=== PATIENT | male | born 1970 | race Caucasian/White ===

== ENCOUNTER 2021-02-21 09:52 | Inpatient (IN) | payer SELFPAY ==
[2021-02-21] MEDS ORDERED: Cefepime 2 GM VIAL ONE (10:55)
[2021-02-21 11:15] LABS: #Monocytes 0.7 10x3/uL (0.0-1.1); %Basophils 0.3 % (0.0-2.0); %Eosinophils 0.2 % (0.0-6.0); %Lymphocytes 7.5 % (18.0-47.0); %Monocytes 6.4 % (0.0-10.0); %Neutrophils 84.9 % (40.0-75.0); Hemoglobin 13.5 g/dL (13.5-17.5); Mean Corpuscular HGB CONC 33.5 g/dL (32.0-36.0); Mean Corpuscular Hemoglobin 29.3 pg (27.0-33.0); Mean Corpuscular Volume 87.6 fl (81.2-95.1); Mean Platelet Volume 9.4 fl (7.4-10.4); Platelet Count 202 10x3/uL (150-450); RBC Distribution Width 13.3 % (11.5-14.5); White Blood Cell (WBC) Count 10.6 10x3/uL (3.5-10.5)
[2021-02-21] MEDS ORDERED: Morphine 4 MG/ML VIAL ONE (11:17)
[2021-02-21 11:37] LABS: ALT (SGPT) 12 U/L (8-55); AST (SGOT) 12 U/L (5-34); Albumin 3.1 g/dL (3.5-5.0); Alkaline Phosphatase 94 U/L (40-110); Anion Gap 20 mmol/L (10-20); BUN (Urea Nitrogen) 22 mg/dL (8.9-20.6); Bilirubin, Total 0.7 mg/dL (0.2-1.2); Calc. Creatinine Clearance 0 mL/min (70-130); Calcium 8.1 mg/dL (7.8-10.44); Carbon Dioxide 21 mmol/L (22-29); Chloride 95 mmol/L (98-107); Glucose 432 mg/dL (70-105); Potassium 4.1 mmol/L (3.5-5.1); Protein, Total 6.1 g/dL (6.0-8.3); Sodium 132 mmol/L (136-145)
[2021-02-21] MEDS ORDERED: Lidocaine 1% w/Epinephrine 1:100K 20 ML VIAL ONE (12:42)
[2021-02-21] MEDS ORDERED: Boostrix 0.5 ML (Tdap) VIAL ONE (13:21)
[2021-02-21] MEDS ORDERED: HYDROcodone/Acetaminophen 5/325 mg Tablet PO PRN (13:48)
[2021-02-21] MEDS ORDERED: Ondansetron ODT 4 MG TAB PO PRN (13:48)
[2021-02-21] MEDS ORDERED: Acetaminophen 325 MG TAB PO PRN (13:48)
[2021-02-21] MEDS ORDERED: Acetaminophen 650 MG Suppository PR PRN (13:48)
[2021-02-21] MEDS ORDERED: Senokot S 8.6-50 MG TAB PO PRN (13:48)
[2021-02-21] MEDS ORDERED: Ondansetron PF 4 MG/2 ML Vial IVP PRN (13:48)
[2021-02-21] MEDS ORDERED: Dextrose 5% in Water 1,000 ML IV PRN (13:51)
[2021-02-21] MEDS ORDERED: Dextrose 50% Abboject 50 ML SYRINGE SLOW IVP PRN (13:51)
[2021-02-21] MEDS ORDERED: Insulin Regular 300 UNITS/3 ML VIAL SC PRN (13:51)
[2021-02-21 14:01] LABS: Lactic Acid 1.5 mmol/L (0.5-2.2)
[2021-02-21] MEDS ORDERED: Piperacillin/Tazobactam 3.375 GM in Sodium Chloride 0.9% 100 ML IVPB SCH ×2 (15:00→16:00)
[2021-02-21 15:21] VITALS: BMI 38.9
[2021-02-21] MEDS: Sodium Chloride 0.9% 1,000 ML IV SCH (15:58)
[2021-02-21] MEDS: Insulin Regular 300 UNITS/3 ML VIAL SC PRN ×2 (16:12→22:06)
[2021-02-21] MEDS: Piperacillin/Tazobactam 3.375 GM in Sodium Chloride 0.9% 100 ML IVPB SCH (20:28)
[2021-02-21] MEDS: VANCOMYCIN 1.75 GM/350 ML BAG 1.75 GM in Premix Bag 1 BAG IVPB SCH (22:12)
[2021-02-22 01:46] LABS: SARS-CoV-2 PCR by NAA Not Detected (NotDetected)
[2021-02-22] MEDS: HYDROcodone/Acetaminophen 5/325 mg Tablet PO PRN ×2 (03:50→11:26)
[2021-02-22] MEDS: Sodium Chloride 0.9% 1,000 ML IV SCH ×2 (03:51→19:37)
[2021-02-22] MEDS: Piperacillin/Tazobactam 3.375 GM in Sodium Chloride 0.9% 100 ML IVPB SCH ×2 (03:51→13:42)
[2021-02-22 04:53] LABS: #Eosinphils 0.1 10x3/uL (0.0-0.5); #Monocytes 0.6 10x3/uL (0.0-1.1); #Neutrophils 7.1 10x3/uL (1.5-8.4); %Basophils 0.4 % (0.0-2.0); %Eosinophils 0.9 % (0.0-6.0); %Lymphocytes 13.7 % (18.0-47.0); %Monocytes 6.9 % (0.0-10.0); %Neutrophils 77.6 % (40.0-75.0); Hemoglobin 12.2 g/dL (13.5-17.5); Mean Corpuscular HGB CONC 33.2 g/dL (32.0-36.0); Mean Corpuscular Hemoglobin 29.2 pg (27.0-33.0); Mean Platelet Volume 9.8 fl (7.4-10.4); Platelet Count 181 10x3/uL (150-450); RBC Distribution Width 13.5 % (11.5-14.5); Red Blood Cell (RBC) Count 4.18 10x6/uL (4.32-5.72); White Blood Cell (WBC) Count 9.2 10x3/uL (3.5-10.5)
[2021-02-22 05:07] LABS: Anion Gap 14 mmol/L (10-20); BUN (Urea Nitrogen) 25 mg/dL (8.9-20.6); Calc. Creatinine Clearance 143 mL/min (70-130); Calcium 7.6 mg/dL (7.8-10.44); Carbon Dioxide 21 mmol/L (22-29); Chloride 100 mmol/L (98-107); Glucose 372 mg/dL (70-105); Potassium 3.4 mmol/L (3.5-5.1); Sodium 132 mmol/L (136-145)
[2021-02-22] MEDS: Insulin Regular 300 UNITS/3 ML VIAL SC PRN (06:00)
[2021-02-22] MEDS ORDERED: Potassium Chloride 20 MEQ TAB PO SCH (10:00)
[2021-02-22] MEDS: VANCOMYCIN 1.75 GM/350 ML BAG 1.75 GM in Premix Bag 1 BAG IVPB SCH (11:47)
[2021-02-22] MEDS ORDERED: NPH, Human Insulin Isophane 300 UNIT/3 ML VIAL SC SCH (18:15)
[2021-02-22 18:24] VITALS: BP 139/94; TEMP 98.6
[2021-02-23] MEDS ORDERED: NPH, Human Insulin Isophane 300 UNIT/3 ML VIAL SC SCH (07:30)
== END 2021-02-22 19:40 | disposition home or self-care (01) | DRG 854 ==
LOC: CSHERS 09:52 → CSHTELE 14:28
PROVIDERS: ADMIT Hospitalist; ATTEND Internal Medicine
PROC: 0D9Q0ZZ Drainage of Anus, Open Approach (ICD-10-PCS; principal; 2021-02-21)
DX: A41.9 Sepsis, unspecified organism (principal); K61.0 Anal abscess; I10 Essential (primary) hypertension; E78.5 Hyperlipidemia, unspecified; I25.10 Atherosclerotic heart disease of native coronary artery without angina pectoris; Z20.822 Contact with and (suspected) exposure to COVID-19; Z95.5 Presence of coronary angioplasty implant and graft; F17.210 Nicotine dependence, cigarettes, uncomplicated; Z82.49 Family history of ischemic heart disease and other diseases of the circulatory system; I11.0 Hypertensive heart disease with heart failure; I50.9 Heart failure, unspecified; E11.65 Type 2 diabetes mellitus with hyperglycemia; Z79.84 Long term (current) use of oral hypoglycemic drugs; Z79.899 Other long term (current) drug therapy
CPT/HCPCS: 36415; 36416; 46050; 74177; 80048; 80053; 83605; 85025; 87040; 87070; 87205; 90471; 90715; 93005; 93010; 96365; 96366; 96367; 96375; J0692; J1815; J2270; J2543; J3370; J3475; J3490; J7050; U0003; U0005

== ENCOUNTER 2021-03-16 21:05 | Inpatient (IN) | payer OTHER, SELFPAY ==
[2021-03-16] MEDS ORDERED: Furosemide 40 MG/4 ML VIAL ONE (22:12)
[2021-03-16 22:21] LABS: ALT (SGPT) 27 U/L (8-55); AST (SGOT) 20 U/L (5-34); Albumin 2.9 g/dL (3.5-5.0); Alkaline Phosphatase 169 U/L (40-110); Anion Gap 13 mmol/L (10-20); BUN (Urea Nitrogen) 23 mg/dL (8.9-20.6); Bilirubin, Total 0.6 mg/dL (0.2-1.2); Calc. Creatinine Clearance 0 mL/min (70-130); Calcium 7.5 mg/dL (7.8-10.44); Carbon Dioxide 23 mmol/L (22-29); Chloride 105 mmol/L (98-107); Globulin 2.6 g/dL (2.4-3.5); Glucose 351 mg/dL (70-105); Lipase 37 U/L (8-78); Potassium 3.8 mmol/L (3.5-5.1); Protein, Total 5.5 g/dL (6.0-8.3); Sodium 137 mmol/L (136-145)
[2021-03-16 22:44] LABS: CKMB 6.1 ng/mL (0-6.6)
[2021-03-16 22:58] LABS: Bilirubin Neg (Negative); Blood, Urine 50 (Negative); Clarity Clear (Clear); Glucose, Urine (Dipstick) 250 mg/dL (Negative); Ketone, Urine Negative (Negative); Leukocyte Negative (Negative); Nitrite Negative (Negative); Protein, Urine (Dipstick) 500 mg/dl (Neg-Trace); Urobilinogen Normal mg/dL (Less than 2)
[2021-03-16 23:13] LABS: Bacteria/HPF 1+ HPF (None Seen); Squamous Epithelial 0-3 HPF (0-3); WBC/HPF 0-3 HPF (0-3)
[2021-03-16 23:14] LABS: Mucous/LPF Rare LPF (<2+)
[2021-03-16] MEDS ORDERED: Senokot S 8.6-50 MG TAB PO PRN (23:43)
[2021-03-16] MEDS ORDERED: HYDROcodone/Acetaminophen 5/325 mg Tablet PO PRN (23:43)
[2021-03-16] MEDS ORDERED: Calcium Carbonate 500 MG ChewTAB PO PRN (23:43)
[2021-03-16] MEDS ORDERED: Dextrose 5% in Water 1,000 ML IV PRN (23:43)
[2021-03-16] MEDS ORDERED: Dextrose 50% Abboject 50 ML SYRINGE SLOW IVP PRN (23:43)
[2021-03-16] MEDS ORDERED: Guaifenesin DM 100-10/5 ML UDCUP PO PRN (23:43)
[2021-03-16] MEDS ORDERED: Acetaminophen 325 MG TAB PO PRN (23:43)
[2021-03-16] MEDS ORDERED: Carvedilol 6.25 MG TAB PO SCH (23:45)
[2021-03-17] MEDS ORDERED: Sulfameth/Trimethoprim DS 800-160mg TAB ONE (00:30)
[2021-03-17] MEDS ORDERED: cefTRIAXone\\ROCEPHIN 1 GM VIAL ONE (00:30)
[2021-03-17] MEDS ORDERED: Carvedilol 3.125 MG TAB ONE (00:36)
[2021-03-17] MEDS: cefTRIAXone\\ROCEPHIN 1 GM in Sodium Chloride 0.9% 100 ML IVPB SCH (01:00)
[2021-03-17] MEDS: Sulfameth/Trimethoprim DS 800-160mg TAB PO SCH ×2 (01:00→11:44)
[2021-03-17] MEDS: Nicotine 21 MG PATCH TD SCH ×2 (01:13→09:15)
[2021-03-17 04:33] LABS: SARS-CoV-2 NAA Rapid Test Not Detected (NotDetected)
[2021-03-17] MEDS: Furosemide 40 MG/4 ML VIAL SLOW IVP SCH ×2 (06:10→15:01)
[2021-03-17 08:30] LABS: #Basophils 0.1 10x3/uL (0.0-0.2); #Eosinphils 0.1 10x3/uL (0.0-0.5); #Monocytes 0.5 10x3/uL (0.0-1.1); #Neutrophils 5.7 10x3/uL (1.5-8.4); %Basophils 0.8 % (0.0-2.0); %Eosinophils 0.9 % (0.0-6.0); %Lymphocytes 16.5 % (18.0-47.0); %Monocytes 7.1 % (0.0-10.0); %Neutrophils 74.3 % (40.0-75.0); Hemoglobin 11.6 g/dL (13.5-17.5); Mean Corpuscular HGB CONC 31.8 g/dL (32.0-36.0); Mean Corpuscular Hemoglobin 29.7 pg (27.0-33.0); Mean Corpuscular Volume 93.4 fl (81.2-95.1); Mean Platelet Volume 9.6 fl (7.4-10.4); Platelet Count 197 10x3/uL (150-450); RBC Distribution Width 15.8 % (11.5-14.5); Red Blood Cell (RBC) Count 3.91 10x6/uL (4.32-5.72); White Blood Cell (WBC) Count 7.7 10x3/uL (3.5-10.5)
[2021-03-17 08:34] LABS: Anion Gap 12 mmol/L (10-20); BUN (Urea Nitrogen) 20 mg/dL (8.9-20.6); Calc. Creatinine Clearance 116 mL/min (70-130); Carbon Dioxide 26 mmol/L (22-29); Chloride 102 mmol/L (98-107); Glucose 275 mg/dL (70-105); Potassium 3.9 mmol/L (3.5-5.1); Sodium 136 mmol/L (136-145)
[2021-03-17 08:53] LABS: CKMB 6.2 ng/mL (0-6.6)
[2021-03-17] MEDS: Enoxaparin Sodium 40 MG/0.4 ML SYRINGE SC SCH (09:15)
[2021-03-17] MEDS: Magnesium Oxide 400 MG TAB PO SCH (09:16)
[2021-03-17] MEDS: Spironolactone 25 MG TAB PO SCH ×2 (09:16→22:34)
[2021-03-17] MEDS: Carvedilol 6.25 MG TAB PO SCH ×2 (09:16→15:01)
[2021-03-17] MEDS: Lisinopril 20 MG TAB PO SCH (09:16)
[2021-03-17] MEDS: Rosuvastatin 20 MG TAB PO SCH (09:16)
[2021-03-17] MEDS: metFORMIN 500 MG TAB PO SCH ×2 (09:16→15:01)
[2021-03-17] MEDS: Clopidogrel Bisulfate 75 MG TAB PO SCH (09:16)
[2021-03-17] MEDS: Lantus 1000 UNITS/10 ML VIAL SC SCH ×2 (09:17→09:46)
[2021-03-17] MEDS: Isosorbide Dinitrate 20 MG TAB PO SCH ×2 (09:46→22:34)
[2021-03-17] MEDS: Empagliflozin 10 MG TAB PO SCH (09:46)
[2021-03-17] MEDS: HumaLOG 300 UNITS/3 ML VIAL SC PRN ×2 (11:45→17:32)
[2021-03-17 17:02] LABS: Hemoglobin A1c Greater than 14.0 % (4.0-6.0)
[2021-03-18] MEDS: Sulfameth/Trimethoprim DS 800-160mg TAB PO SCH ×2 (00:53→13:42)
[2021-03-18] MEDS: cefTRIAXone\\ROCEPHIN 1 GM in Sodium Chloride 0.9% 100 ML IVPB SCH (00:54)
[2021-03-18 05:28] LABS: Anion Gap 13 mmol/L (10-20); BUN (Urea Nitrogen) 19 mg/dL (8.9-20.6); Calc. Creatinine Clearance 114 mL/min (70-130); Calcium 7.9 mg/dL (7.8-10.44); Carbon Dioxide 26 mmol/L (22-29); Chloride 103 mmol/L (98-107); Glucose 131 mg/dL (70-105); Potassium 3.6 mmol/L (3.5-5.1); Sodium 138 mmol/L (136-145)
[2021-03-18 05:32] LABS: #Basophils 0.1 10x3/uL (0.0-0.2); #Eosinphils 0.1 10x3/uL (0.0-0.5); #Monocytes 0.6 10x3/uL (0.0-1.1); #Neutrophils 4.5 10x3/uL (1.5-8.4); %Basophils 0.7 % (0.0-2.0); %Eosinophils 1.4 % (0.0-6.0); %Lymphocytes 25.6 % (18.0-47.0); %Monocytes 8.9 % (0.0-10.0); Mean Corpuscular Hemoglobin 28.9 pg (27.0-33.0); Mean Corpuscular Volume 93.4 fl (81.2-95.1); Mean Platelet Volume 9.7 fl (7.4-10.4); Platelet Count 192 10x3/uL (150-450); RBC Distribution Width 15.8 % (11.5-14.5); White Blood Cell (WBC) Count 7.1 10x3/uL (3.5-10.5)
[2021-03-18] MEDS: Furosemide 40 MG/4 ML VIAL SLOW IVP SCH ×2 (05:49→13:42)
[2021-03-18] MEDS: metFORMIN 500 MG TAB PO SCH ×2 (09:04→17:15)
[2021-03-18] MEDS: Lantus 1000 UNITS/10 ML VIAL SC SCH ×2 (09:04→20:50)
[2021-03-18] MEDS: Enoxaparin Sodium 40 MG/0.4 ML SYRINGE SC SCH (09:04)
[2021-03-18] MEDS: Empagliflozin 10 MG TAB PO SCH (09:04)
[2021-03-18] MEDS: Isosorbide Dinitrate 20 MG TAB PO SCH ×2 (09:05→20:50)
[2021-03-18] MEDS: Magnesium Oxide 400 MG TAB PO SCH (09:05)
[2021-03-18] MEDS: Carvedilol 6.25 MG TAB PO SCH (09:05)
[2021-03-18] MEDS: Spironolactone 25 MG TAB PO SCH ×2 (09:05→20:49)
[2021-03-18] MEDS: Lisinopril 20 MG TAB PO SCH (09:05)
[2021-03-18] MEDS: Rosuvastatin 20 MG TAB PO SCH (09:05)
[2021-03-18] MEDS: Clopidogrel Bisulfate 75 MG TAB PO SCH (10:10)
[2021-03-18] MEDS: HumaLOG 300 UNITS/3 ML VIAL SC PRN ×2 (17:14→20:55)
[2021-03-18] MEDS: Carvedilol 12.5 MG TAB PO SCH (17:15)
[2021-03-19] MEDS: cefTRIAXone\\ROCEPHIN 1 GM in Sodium Chloride 0.9% 100 ML IVPB SCH (00:27)
[2021-03-19] MEDS: Nicotine 21 MG PATCH TD SCH (00:27)
[2021-03-19] MEDS: Sulfameth/Trimethoprim DS 800-160mg TAB PO SCH ×2 (00:27→12:48)
[2021-03-19 04:50] LABS: #Basophils 0.1 10x3/uL (0.0-0.2); #Eosinphils 0.1 10x3/uL (0.0-0.5); #Monocytes 0.5 10x3/uL (0.0-1.1); #Neutrophils 3.6 10x3/uL (1.5-8.4); %Basophils 1.3 % (0.0-2.0); %Lymphocytes 30.3 % (18.0-47.0); %Monocytes 7.5 % (0.0-10.0); %Neutrophils 58.2 % (40.0-75.0); Hemoglobin 11.2 g/dL (13.5-17.5); Mean Corpuscular HGB CONC 31.1 g/dL (32.0-36.0); Mean Corpuscular Hemoglobin 29.1 pg (27.0-33.0); Mean Corpuscular Volume 93.5 fl (81.2-95.1); Mean Platelet Volume 9.5 fl (7.4-10.4); Platelet Count 201 10x3/uL (150-450); RBC Distribution Width 15.9 % (11.5-14.5); Red Blood Cell (RBC) Count 3.85 10x6/uL (4.32-5.72); White Blood Cell (WBC) Count 6.1 10x3/uL (3.5-10.5)
[2021-03-19 04:53] LABS: Anion Gap 13 mmol/L (10-20); BUN (Urea Nitrogen) 27 mg/dL (8.9-20.6); Calc. Creatinine Clearance 82 mL/min (70-130); Carbon Dioxide 24 mmol/L (22-29); Chloride 105 mmol/L (98-107); Glucose 193 mg/dL (70-105); Sodium 138 mmol/L (136-145)
[2021-03-19] MEDS: HumaLOG 300 UNITS/3 ML VIAL SC PRN (06:21)
[2021-03-19] MEDS: Furosemide 40 MG/4 ML VIAL SLOW IVP SCH (06:22)
[2021-03-19 08:39] VITALS: BP 128/84; TEMP 97
[2021-03-19] MEDS: Lisinopril 20 MG TAB PO SCH (09:15)
[2021-03-19] MEDS: metFORMIN 500 MG TAB PO SCH (09:15)
[2021-03-19] MEDS: Clopidogrel Bisulfate 75 MG TAB PO SCH (09:31)
[2021-03-19] MEDS: Carvedilol 12.5 MG TAB PO SCH (09:31)
[2021-03-19] MEDS: Empagliflozin 10 MG TAB PO SCH (09:31)
[2021-03-19] MEDS: Lantus 1000 UNITS/10 ML VIAL SC SCH (09:31)
[2021-03-19] MEDS: Enoxaparin Sodium 40 MG/0.4 ML SYRINGE SC SCH (09:31)
[2021-03-19] MEDS: Rosuvastatin 20 MG TAB PO SCH (09:32)
[2021-03-19] MEDS: Isosorbide Dinitrate 20 MG TAB PO SCH (09:32)
[2021-03-19] MEDS: Magnesium Oxide 400 MG TAB PO SCH (09:32)
[2021-03-19] MEDS: Spironolactone 25 MG TAB PO SCH (09:32)
== END 2021-03-19 12:52 | disposition home or self-care (01) | DRG 602 ==
LOC: CSHERS 21:05 → CSHTELE 23:45 → OBSVTOIN 23:46
PROVIDERS: ADMIT Student in an Organized Health Care Education/Training Program; ATTEND Internal Medicine
DX: L03.115 Cellulitis of right lower limb (principal); I50.23 Acute on chronic systolic (congestive) heart failure; I13.0 Hypertensive heart and chronic kidney disease with heart failure and stage 1 through stage 4 chronic kidney disease, or unspecified chronic kidney disease; Z68.41 Body mass index [BMI] 40.0-44.9, adult; I42.0 Dilated cardiomyopathy; F17.210 Nicotine dependence, cigarettes, uncomplicated; I25.10 Atherosclerotic heart disease of native coronary artery without angina pectoris; E78.2 Mixed hyperlipidemia; E66.9 Obesity, unspecified; Z20.822 Contact with and (suspected) exposure to COVID-19; E11.22 Type 2 diabetes mellitus with diabetic chronic kidney disease; E11.51 Type 2 diabetes mellitus with diabetic peripheral angiopathy without gangrene; E11.65 Type 2 diabetes mellitus with hyperglycemia; Z95.5 Presence of coronary angioplasty implant and graft; Z79.4 Long term (current) use of insulin; Z79.899 Other long term (current) drug therapy; Z71.6 Tobacco abuse counseling
CPT/HCPCS: 36415; 36416; 71045; 80048; 80053; 81003; 81015; 82553; 83036; 83690; 83880; 84443; 84484; 85025; 87070; 87205; 93005; 93306; 93970; 96374; J0696; J1650; J1815; J1940; J3490; U0002

== ENCOUNTER 2021-03-31 22:43 | Inpatient (IN) | payer OTHER, SELFPAY ==
[2021-03-31 23:41] LABS: #Basophils 0.1 10x3/uL (0.0-0.2); #Eosinphils 0.1 10x3/uL (0.0-0.5); #Monocytes 0.4 10x3/uL (0.0-1.1); #Neutrophils 4.2 10x3/uL (1.5-8.4); %Basophils 1.2 % (0.0-2.0); %Eosinophils 1.5 % (0.0-6.0); %Lymphocytes 26.1 % (18.0-47.0); %Monocytes 6.4 % (0.0-10.0); %Neutrophils 64.2 % (40.0-75.0); Hemoglobin 12.5 g/dL (13.5-17.5); Mean Corpuscular Hemoglobin 29.4 pg (27.0-33.0); Mean Platelet Volume 9.4 fl (7.4-10.4); Platelet Count 242 10x3/uL (150-450); RBC Distribution Width 16.7 % (11.5-14.5); Red Blood Cell (RBC) Count 4.25 10x6/uL (4.32-5.72); White Blood Cell (WBC) Count 6.6 10x3/uL (3.5-10.5)
[2021-03-31 23:51] LABS: ALT (SGPT) 17 U/L (8-55); AST (SGOT) 14 U/L (5-34); Albumin 2.9 g/dL (3.5-5.0); Alkaline Phosphatase 147 U/L (40-110); Anion Gap 12 mmol/L (10-20); BUN (Urea Nitrogen) 28 mg/dL (8.9-20.6); Bilirubin, Total 0.6 mg/dL (0.2-1.2); Calc. Creatinine Clearance 0 mL/min (70-130); Calcium 8.2 mg/dL (7.8-10.44); Carbon Dioxide 23 mmol/L (22-29); Chloride 106 mmol/L (98-107); Globulin 2.9 g/dL (2.4-3.5); Glucose 190 mg/dL (70-105); Protein, Total 5.8 g/dL (6.0-8.3); Sodium 137 mmol/L (136-145)
[2021-03-31] MEDS ORDERED: Furosemide 40 MG/4 ML VIAL ONE (23:59)
[2021-04-01 00:13] LABS: CKMB 5.2 ng/mL (0-6.6)
[2021-04-01] MEDS ORDERED: Acetaminophen 325 MG TAB PO PRN (00:53)
[2021-04-01] MEDS ORDERED: Dextrose 50% Abboject 50 ML SYRINGE SLOW IVP PRN (00:53)
[2021-04-01] MEDS ORDERED: Dextrose 5% in Water 1,000 ML IV PRN (00:53)
[2021-04-01] MEDS ORDERED: Calcium Carbonate 500 MG ChewTAB PO PRN (00:53)
[2021-04-01] MEDS ORDERED: Senokot S 8.6-50 MG TAB PO PRN (00:53)
[2021-04-01] MEDS ORDERED: Guaifenesin DM 100-10/5 ML UDCUP PO PRN (00:53)
[2021-04-01] MEDS ORDERED: Zolpidem Tartrate 5 MG TAB PO PRN (00:53)
[2021-04-01] MEDS: Furosemide 40 MG/4 ML VIAL SLOW IVP SCH ×2 (01:50→05:52)
[2021-04-01 01:56] VITALS: BMI 46.7
[2021-04-01] MEDS ORDERED: FLU VACC QS2021-22(6MOS UP)/PF 60 MCG/0.5 ML SYRINGE IM ONE (02:30)
[2021-04-01] MEDS ORDERED: Carvedilol 3.125 MG TAB PO SCH (03:15)
[2021-04-01 04:25] LABS: Anion Gap 12 mmol/L (10-20); BUN (Urea Nitrogen) 26 mg/dL (8.9-20.6); Calc. Creatinine Clearance 172 mL/min (70-130); Calcium 8.4 mg/dL (7.8-10.44); Carbon Dioxide 23 mmol/L (22-29); Chloride 105 mmol/L (98-107); Glucose 168 mg/dL (70-105); Magnesium 1.8 mg/dL (1.6-2.6); Potassium 3.7 mmol/L (3.5-5.1); Sodium 136 mmol/L (136-145)
[2021-04-01] MEDS ORDERED: Carvedilol 6.25 MG TAB PO SCH (08:00)
[2021-04-01] MEDS ORDERED: metFORMIN 500 MG TAB PO SCH (08:00)
[2021-04-01] MEDS ORDERED: Potassium Chloride 20 MEQ TAB PO SCH ×2 (08:30→08:45)
[2021-04-01 08:36] LABS: Troponin I 0.038 ng/mL (< 0.028)
[2021-04-01 08:55] LABS: CKMB 4.5 ng/mL (0-6.6)
[2021-04-01] MEDS ORDERED: Carvedilol 25 MG TAB PO SCH (09:00)
[2021-04-01] MEDS: Enoxaparin Sodium 40 MG/0.4 ML SYRINGE SC SCH (09:31)
[2021-04-01] MEDS: Lisinopril 20 MG TAB PO SCH (09:31)
[2021-04-01] MEDS: Magnesium Oxide 400 MG TAB PO SCH (09:31)
[2021-04-01] MEDS: Clopidogrel Bisulfate 75 MG TAB PO SCH (09:31)
[2021-04-01] MEDS: Rosuvastatin 20 MG TAB PO SCH (09:32)
[2021-04-01] MEDS: Lantus 1000 UNITS/10 ML VIAL SC SCH (09:33)
[2021-04-01] MEDS: Glimepiride 2 MG TAB PO SCH (09:35)
[2021-04-01] MEDS: Spironolactone 25 MG TAB PO SCH ×2 (15:59→20:08)
[2021-04-01] MEDS: Nicotine 21 MG PATCH TD SCH (15:59)
[2021-04-01 16:03] LABS: SARS-CoV-2 PCR by NAA Not Detected (NotDetected)
[2021-04-01] MEDS: metFORMIN 500 MG TAB PO SCH (17:46)
[2021-04-01] MEDS: Carvedilol 25 MG TAB PO SCH (17:46)
[2021-04-01] MEDS ORDERED: Lantus 1000 UNITS/10 ML VIAL SC SCH (21:00)
[2021-04-02 04:39] LABS: Anion Gap 14 mmol/L (10-20); BUN (Urea Nitrogen) 33 mg/dL (8.9-20.6); Calc. Creatinine Clearance 143 mL/min (70-130); Calcium 8.2 mg/dL (7.8-10.44); Carbon Dioxide 23 mmol/L (22-29); Chloride 107 mmol/L (98-107); Glucose 179 mg/dL (70-105); Potassium 4.5 mmol/L (3.5-5.1); Sodium 139 mmol/L (136-145)
[2021-04-02 04:57] LABS: Troponin I 0.035 ng/mL (< 0.028)
[2021-04-02] MEDS: Furosemide 40 MG/4 ML VIAL SLOW IVP SCH ×2 (06:22→14:10)
[2021-04-02] MEDS: Insulin Regular 300 UNITS/3 ML VIAL SC PRN ×2 (06:22→14:00)
[2021-04-02] MEDS: Lantus 1000 UNITS/10 ML VIAL SC SCH ×2 (09:01→20:15)
[2021-04-02] MEDS: Clopidogrel Bisulfate 75 MG TAB PO SCH (09:02)
[2021-04-02] MEDS: Rosuvastatin 20 MG TAB PO SCH (09:02)
[2021-04-02] MEDS: Lisinopril 20 MG TAB PO SCH (09:02)
[2021-04-02] MEDS: Magnesium Oxide 400 MG TAB PO SCH (09:02)
[2021-04-02] MEDS: Spironolactone 25 MG TAB PO SCH ×2 (09:02→20:14)
[2021-04-02] MEDS: Glimepiride 2 MG TAB PO SCH (09:02)
[2021-04-02] MEDS: Enoxaparin Sodium 40 MG/0.4 ML SYRINGE SC SCH (09:03)
[2021-04-02] MEDS: metFORMIN 500 MG TAB PO SCH ×2 (09:03→17:04)
[2021-04-02] MEDS: Nicotine 21 MG PATCH TD SCH (09:04)
[2021-04-02] MEDS: Carvedilol 25 MG TAB PO SCH ×2 (09:04→17:03)
[2021-04-03 04:50] LABS: Anion Gap 13 mmol/L (10-20); BUN (Urea Nitrogen) 37 mg/dL (8.9-20.6); Calc. Creatinine Clearance 145 mL/min (70-130); Calcium 8.3 mg/dL (7.8-10.44); Carbon Dioxide 25 mmol/L (22-29); Chloride 106 mmol/L (98-107); Glucose 124 mg/dL (70-105); Potassium 4.2 mmol/L (3.5-5.1); Sodium 140 mmol/L (136-145)
[2021-04-03] MEDS: Furosemide 40 MG/4 ML VIAL SLOW IVP SCH ×2 (06:41→15:16)
[2021-04-03] MEDS: Glimepiride 2 MG TAB PO SCH (10:09)
[2021-04-03] MEDS: metFORMIN 500 MG TAB PO SCH (10:09)
[2021-04-03] MEDS: Clopidogrel Bisulfate 75 MG TAB PO SCH (10:10)
[2021-04-03] MEDS: Enoxaparin Sodium 40 MG/0.4 ML SYRINGE SC SCH (10:10)
[2021-04-03] MEDS: Lisinopril 20 MG TAB PO SCH (10:10)
[2021-04-03] MEDS: Spironolactone 25 MG TAB PO SCH (10:11)
[2021-04-03] MEDS: Rosuvastatin 20 MG TAB PO SCH (10:11)
[2021-04-03] MEDS: Magnesium Oxide 400 MG TAB PO SCH (10:11)
[2021-04-03] MEDS: Nicotine 21 MG PATCH TD SCH (10:12)
[2021-04-03] MEDS: Carvedilol 25 MG TAB PO SCH (10:14)
[2021-04-03] MEDS: Lantus 1000 UNITS/10 ML VIAL SC SCH (10:17)
[2021-04-03] MEDS: Insulin Regular 300 UNITS/3 ML VIAL SC PRN (13:34)
[2021-04-03 16:37] VITALS: BP 91/61; TEMP 97.8
== END 2021-04-03 18:25 | disposition home or self-care (01) | DRG 291 ==
LOC: CSHERS 22:43 → CSHTELE 04-01 01:54
PROVIDERS: ADMIT Student in an Organized Health Care Education/Training Program; ATTEND Family Medicine
DX: I13.0 Hypertensive heart and chronic kidney disease with heart failure and stage 1 through stage 4 chronic kidney disease, or unspecified chronic kidney disease (principal); I50.43 Acute on chronic combined systolic (congestive) and diastolic (congestive) heart failure; Z68.42 Body mass index [BMI] 45.0-49.9, adult; L03.90 Cellulitis, unspecified; I25.10 Atherosclerotic heart disease of native coronary artery without angina pectoris; I34.0 Nonrheumatic mitral (valve) insufficiency; F17.210 Nicotine dependence, cigarettes, uncomplicated; E11.65 Type 2 diabetes mellitus with hyperglycemia; E11.51 Type 2 diabetes mellitus with diabetic peripheral angiopathy without gangrene; E78.2 Mixed hyperlipidemia; I42.9 Cardiomyopathy, unspecified; E66.01 Morbid (severe) obesity due to excess calories; N18.2 Chronic kidney disease, stage 2 (mild); E11.69 Type 2 diabetes mellitus with other specified complication; Z20.822 Contact with and (suspected) exposure to COVID-19; Z79.899 Other long term (current) drug therapy; Z95.5 Presence of coronary angioplasty implant and graft; Z91.19 Patient's noncompliance with other medical treatment and regimen; Z91.14 Patient's other noncompliance with medication regimen
CPT/HCPCS: 36415; 36416; 71045; 80048; 80053; 82553; 83735; 83880; 84443; 84484; 85025; 93005; 97139; J1650; J1815; J1940; U0003; U0005

== ENCOUNTER 2021-04-06 20:39 | Emergency (ER) | payer SELFPAY ==
[2021-04-06] MEDS ORDERED: Lidocaine Viscous Sol 2% 15 ml UD Cup ONE (22:07)
[2021-04-06] MEDS ORDERED: Mag-Al Plus 1200 MG/1200 MG/120 MG/30 ML UDCUP ONE (22:08)
== END 2021-04-06 23:05 | disposition home or self-care (01) ==
LOC: CSHERS 20:39
DX: N50.89 Other specified disorders of the male genital organs (principal); Z46.6 Encounter for fitting and adjustment of urinary device; I11.0 Hypertensive heart disease with heart failure; I50.9 Heart failure, unspecified; E11.9 Type 2 diabetes mellitus without complications; I25.10 Atherosclerotic heart disease of native coronary artery without angina pectoris; F17.210 Nicotine dependence, cigarettes, uncomplicated; Z79.4 Long term (current) use of insulin; Z79.84 Long term (current) use of oral hypoglycemic drugs
CPT/HCPCS: 51702

== ENCOUNTER 2021-04-07 21:36 | Emergency (ER) | payer SELFPAY | END 2021-04-07 22:58 | disposition home or self-care (01) | LOC: CSHERS 21:36 | DX: T83.031A Leakage of indwelling urethral catheter, initial encounter (principal); I11.0 Hypertensive heart disease with heart failure; I50.9 Heart failure, unspecified; E11.9 Type 2 diabetes mellitus without complications; I25.10 Atherosclerotic heart disease of native coronary artery without angina pectoris; F17.210 Nicotine dependence, cigarettes, uncomplicated | CPT/HCPCS: 99283 ==

== ENCOUNTER 2022-11-17 18:33 | Inpatient (IN) | payer SELFPAY ==
[2022-11-17 19:20] LABS: #Basophils 0.1 10x3/uL (0.0-0.2); #Eosinphils 0.2 10x3/uL (0.0-0.5); #Monocytes 0.6 10x3/uL (0.0-1.1); #Neutrophils 5.4 10x3/uL (1.5-8.4); %Basophils 0.8 % (0.0-2.0); %Eosinophils 2.3 % (0.0-6.0); %Lymphocytes 19.4 % (18.0-47.0); %Monocytes 7.9 % (0.0-10.0); %Neutrophils 69.3 % (40.0-75.0); Hemoglobin 12.5 g/dL (13.5-17.5); Mean Corpuscular HGB CONC 32.2 g/dL (32.0-36.0); Mean Corpuscular Hemoglobin 30.6 pg (27.0-33.0); Mean Corpuscular Volume 95.1 fl (81.2-95.1); Mean Platelet Volume 9.4 fl (7.4-10.4); Platelet Count 258 10x3/uL (150-450); RBC Distribution Width 14.9 % (11.5-14.5); Red Blood Cell (RBC) Count 4.08 10x6/uL (4.32-5.72); White Blood Cell (WBC) Count 7.7 10x3/uL (3.5-10.5)
[2022-11-17 19:36] LABS: ALT (SGPT) 32 U/L (8-55); AST (SGOT) 34 U/L (5-34); Albumin 2.6 g/dL (3.5-5.0); Alkaline Phosphatase 146 U/L (40-110); Anion Gap 15 mmol/L (10-20); BUN (Urea Nitrogen) 37 mg/dL (8.4-25.7); Bilirubin, Total 0.5 mg/dL (0.2-1.2); Calc. Creatinine Clearance 0 mL/min (70-130); Carbon Dioxide 22 mmol/L (22-29); Chloride 108 mmol/L (98-107); Estimated GFR 44; Glucose 174 mg/dL (70-105); Magnesium 1.9 mg/dL (1.6-2.6); Potassium 3.7 mmol/L (3.5-5.1); Protein, Total 5.6 g/dL (6.0-8.3); Sodium 141 mmol/L (136-145)
[2022-11-17 19:59] LABS: CKMB 6.8 ng/mL (0-6.6)
[2022-11-17] MEDS ORDERED: Bumetanide 1 MG/4 ML VIAL IVP SCH (20:00)
[2022-11-17] MEDS ORDERED: Nitroglycerin 2% Ointment 1 INCH/1 GM Packet ONE (20:12)
[2022-11-17] MEDS ORDERED: Ipratropium/Albuterol 3 ML NEB ONE (20:35)
[2022-11-17] MEDS ORDERED: Acetaminophen 650 MG Suppository PR PRN (21:20)
[2022-11-17] MEDS ORDERED: Ondansetron ODT 4 MG TAB PO PRN (21:20)
[2022-11-17] MEDS ORDERED: Ondansetron PF 4 MG/2 ML Vial IVP PRN (21:20)
[2022-11-17 22:15] VITALS: BMI 46.8
[2022-11-17] MEDS ORDERED: Electrolyte Replacement Protocol FS SCH (22:15)
[2022-11-17] MEDS ORDERED: HumaLOG 300 UNITS/3 ML VIAL SC PRN (22:21)
[2022-11-17] MEDS ORDERED: Dextrose 5% in Water 1,000 ML IV PRN (22:21)
[2022-11-17] MEDS ORDERED: Dextrose 50% Abboject 50 ML SYRINGE SLOW IVP PRN (22:21)
[2022-11-17] MEDS ORDERED: Glucagon 1 MG/ML KIT IM PRN (22:21)
[2022-11-17 22:42] LABS: Troponin I 0.096 ng/mL (< 0.028)
[2022-11-17] MEDS ORDERED: Magnesium 2 GM/50 ML(in water) 2 GM in Premix Bag 1 BAG IVPB SCH (23:00)
[2022-11-18 01:54] LABS: Troponin I 0.082 ng/mL (< 0.028)
[2022-11-18] MEDS ORDERED: Magnesium 2 GM/50 ML BAG (IN WATER) ONE (02:17)
[2022-11-18 02:33] LABS: %Lymphocytes 16.5 % (18.0-47.0); %Neutrophils 72.5 % (40.0-75.0); Hemoglobin 12.9 g/dL (13.5-17.5); Mean Corpuscular HGB CONC 31.9 g/dL (32.0-36.0); Mean Corpuscular Hemoglobin 30.6 pg (27.0-33.0); Mean Platelet Volume 8.8 fl (7.4-10.4); Platelet Count 249 10x3/uL (150-450); RBC Distribution Width 15.3 % (11.5-14.5); Red Blood Cell (RBC) Count 4.21 10x6/uL (4.32-5.72); White Blood Cell (WBC) Count 7.4 10x3/uL (3.5-10.5)
[2022-11-18 02:34] LABS: #Basophils 0.1 10x3/uL (0.0-0.2); #Eosinphils 0.1 10x3/uL (0.0-0.5); #Monocytes 0.6 10x3/uL (0.0-1.1); #Neutrophils 5.4 10x3/uL (1.5-8.4); %Basophils 0.8 % (0.0-2.0); %Eosinophils 1.9 % (0.0-6.0); %Monocytes 7.9 % (0.0-10.0)
[2022-11-18 03:00] LABS: Anion Gap 16 mmol/L (10-20); BUN (Urea Nitrogen) 35 mg/dL (8.4-25.7); Calc. Creatinine Clearance 121 mL/min (70-130); Calcium 8.1 mg/dL (7.8-10.44); Carbon Dioxide 21 mmol/L (22-29); Chloride 107 mmol/L (98-107); Estimated GFR 47; Glucose 164 mg/dL (70-105); Magnesium 1.9 mg/dL (1.6-2.6); Potassium 3.5 mmol/L (3.5-5.1); Sodium 140 mmol/L (136-145)
[2022-11-18] MEDS ORDERED: Furosemide 40 MG TAB ONE (06:13)
[2022-11-18] MEDS ORDERED: Furosemide 100 MG/10 ML VIAL ONE (06:18)
[2022-11-18] MEDS ORDERED: Furosemide 40 MG/4 ML VIAL ONE ×3 (06:19→15:46)
[2022-11-18] MEDS: Furosemide 40 MG/4 ML VIAL SLOW IVP SCH ×2 (07:26→17:43)
[2022-11-18] MEDS ORDERED: Magnesium 2 GM/50 ML(in water) 2 GM in Premix Bag 1 BAG IVPB SCH ×2 (08:00→11:00)
[2022-11-18] MEDS ORDERED: Potassium Chloride 20 MEQ TAB PO SCH (08:00)
[2022-11-18] MEDS ORDERED: Potassium Chloride 20 MEQ TAB ONE (10:58)
[2022-11-18] MEDS ORDERED: Carvedilol 6.25 MG TAB PO SCH (11:00)
[2022-11-18] MEDS ORDERED: Lisinopril 5 MG TAB PO SCH (11:00)
[2022-11-18] MEDS ORDERED: Aspirin 81 mg Enteric Coated Tablet ONE (11:00)
[2022-11-18] MEDS ORDERED: Aspirin 81 mg Enteric Coated Tablet PO SCH (11:00)
[2022-11-18] MEDS ORDERED: Furosemide 40 MG/4 ML VIAL SLOW IVP SCH (12:00)
[2022-11-18] MEDS ORDERED: Loratadine 10 MG TAB PO SCH (12:00)
[2022-11-18] MEDS ORDERED: cefTRIAXone (ROCEPHIN) 1 GM VIAL ONE (12:12)
[2022-11-18] MEDS: cefTRIAXone\\ROCEPHIN 1 GM in Sodium Chloride 0.9% 100 ML IVPB SCH (14:00)
[2022-11-18] MEDS: Carvedilol 6.25 MG TAB PO SCH (18:25)
[2022-11-18] MEDS: Atorvastatin Calcium 40 MG TAB PO SCH (20:46)
[2022-11-19] MEDS ORDERED: traZODone HCl 50 MG TAB PO SCH (01:15)
[2022-11-19] MEDS ORDERED: traZODone HCl 50 MG TAB ONE (01:23)
[2022-11-19] MEDS: Furosemide 40 MG/4 ML VIAL SLOW IVP SCH ×2 (05:31→15:23)
[2022-11-19 06:11] LABS: Anion Gap 15 mmol/L (10-20); BUN (Urea Nitrogen) 36 mg/dL (8.4-25.7); Calc. Creatinine Clearance 104 mL/min (70-130); Calcium 8.3 mg/dL (7.8-10.44); Carbon Dioxide 23 mmol/L (22-29); Chloride 105 mmol/L (98-107); Estimated GFR 39; Glucose 198 mg/dL (70-105); Magnesium 2.3 mg/dL (1.6-2.6); Potassium 3.8 mmol/L (3.5-5.1); Sodium 139 mmol/L (136-145)
[2022-11-19] MEDS: HumaLOG 300 UNITS/3 ML VIAL SC PRN ×3 (06:28→18:25)
[2022-11-19 07:02] LABS: #Basophils 0.1 10x3/uL (0.0-0.2); #Eosinphils 0.1 10x3/uL (0.0-0.5); #Monocytes 0.7 10x3/uL (0.0-1.1); #Neutrophils 6.2 10x3/uL (1.5-8.4); %Basophils 0.9 % (0.0-2.0); %Eosinophils 1.6 % (0.0-6.0); %Lymphocytes 18.9 % (18.0-47.0); %Monocytes 7.7 % (0.0-10.0); %Neutrophils 70.6 % (40.0-75.0); Hemoglobin 13.1 g/dL (13.5-17.5); Mean Corpuscular HGB CONC 31.2 g/dL (32.0-36.0); Mean Corpuscular Hemoglobin 30.1 pg (27.0-33.0); Mean Corpuscular Volume 96.6 fl (81.2-95.1); Mean Platelet Volume 9.5 fl (7.4-10.4); Platelet Count 250 10x3/uL (150-450); Red Blood Cell (RBC) Count 4.35 10x6/uL (4.32-5.72); White Blood Cell (WBC) Count 8.8 10x3/uL (3.5-10.5)
[2022-11-19] MEDS: Lisinopril 5 MG TAB PO SCH (09:05)
[2022-11-19] MEDS: Carvedilol 6.25 MG TAB PO SCH ×2 (09:05→18:24)
[2022-11-19] MEDS: Aspirin 81 mg Enteric Coated Tablet PO SCH (09:05)
[2022-11-19] MEDS: cefTRIAXone\\ROCEPHIN 1 GM in Sodium Chloride 0.9% 100 ML IVPB SCH (13:19)
[2022-11-19] MEDS: Atorvastatin Calcium 40 MG TAB PO SCH (21:24)
[2022-11-19] MEDS: traZODone HCl 50 MG TAB PO PRN (22:02)
[2022-11-20] MEDS: Furosemide 40 MG/4 ML VIAL SLOW IVP SCH ×2 (05:19→15:39)
[2022-11-20] MEDS: HumaLOG 300 UNITS/3 ML VIAL SC PRN ×3 (06:23→17:29)
[2022-11-20 06:30] LABS: Anion Gap 15 mmol/L (10-20); BUN (Urea Nitrogen) 39 mg/dL (8.4-25.7); Calc. Creatinine Clearance 103 mL/min (70-130); Calcium 8.2 mg/dL (7.8-10.44); Carbon Dioxide 24 mmol/L (22-29); Chloride 104 mmol/L (98-107); Estimated GFR 39; Glucose 207 mg/dL (70-105); Potassium 4.1 mmol/L (3.5-5.1); Sodium 139 mmol/L (136-145)
[2022-11-20 06:55] LABS: #Basophils 0.1 10x3/uL (0.0-0.2); #Eosinphils 0.2 10x3/uL (0.0-0.5); #Monocytes 0.6 10x3/uL (0.0-1.1); #Neutrophils 5.3 10x3/uL (1.5-8.4); %Basophils 0.8 % (0.0-2.0); %Neutrophils 69.9 % (40.0-75.0); Hemoglobin 12.8 g/dL (13.5-17.5); Mean Corpuscular HGB CONC 31.2 g/dL (32.0-36.0); Mean Corpuscular Hemoglobin 30.4 pg (27.0-33.0); Mean Corpuscular Volume 97.4 fl (81.2-95.1); Mean Platelet Volume 9.4 fl (7.4-10.4); Platelet Count 243 10x3/uL (150-450); RBC Distribution Width 14.7 % (11.5-14.5); Red Blood Cell (RBC) Count 4.21 10x6/uL (4.32-5.72); White Blood Cell (WBC) Count 7.6 10x3/uL (3.5-10.5)
[2022-11-20] MEDS: Acetaminophen 325 MG TAB PO PRN ×2 (10:10→22:16)
[2022-11-20] MEDS: Carvedilol 6.25 MG TAB PO SCH ×2 (10:11→17:25)
[2022-11-20] MEDS: Ivabradine 5 MG TAB PO SCH ×2 (10:12→22:18)
[2022-11-20] MEDS: Aspirin 81 mg Enteric Coated Tablet PO SCH (10:12)
[2022-11-20] MEDS: Amoxicillin/Potassium Clav 875 MG TAB PO SCH ×2 (10:12→22:18)
[2022-11-20] MEDS: Lisinopril 5 MG TAB PO SCH (10:13)
[2022-11-20] MEDS: traZODone HCl 50 MG TAB PO PRN (22:16)
[2022-11-20] MEDS: Atorvastatin Calcium 40 MG TAB PO SCH (22:17)
[2022-11-21] MEDS: Furosemide 40 MG/4 ML VIAL SLOW IVP SCH (05:05)
[2022-11-21 05:46] LABS: #Basophils 0.1 10x3/uL (0.0-0.2); #Eosinphils 0.2 10x3/uL (0.0-0.5); #Monocytes 0.6 10x3/uL (0.0-1.1); #Neutrophils 4.8 10x3/uL (1.5-8.4); %Basophils 0.7 % (0.0-2.0); %Eosinophils 2.1 % (0.0-6.0); %Lymphocytes 21.2 % (18.0-47.0); %Monocytes 8.7 % (0.0-10.0); %Neutrophils 66.9 % (40.0-75.0); Hemoglobin 13.3 g/dL (13.5-17.5); Mean Corpuscular HGB CONC 31.7 g/dL (32.0-36.0); Mean Corpuscular Hemoglobin 30.4 pg (27.0-33.0); Mean Corpuscular Volume 95.9 fl (81.2-95.1); Mean Platelet Volume 9.3 fl (7.4-10.4); Platelet Count 243 10x3/uL (150-450); RBC Distribution Width 14.6 % (11.5-14.5); Red Blood Cell (RBC) Count 4.37 10x6/uL (4.32-5.72); White Blood Cell (WBC) Count 7.1 10x3/uL (3.5-10.5)
[2022-11-21 05:59] LABS: Anion Gap 18 mmol/L (10-20); BUN (Urea Nitrogen) 43 mg/dL (8.4-25.7); Calc. Creatinine Clearance 107 mL/min (70-130); Calcium 8.2 mg/dL (7.8-10.44); Carbon Dioxide 20 mmol/L (22-29); Chloride 104 mmol/L (98-107); Estimated GFR 38; Glucose 162 mg/dL (70-105); Potassium 4.4 mmol/L (3.5-5.1); Sodium 138 mmol/L (136-145)
[2022-11-21] MEDS: Amoxicillin/Potassium Clav 875 MG TAB PO SCH (09:41)
[2022-11-21] MEDS: Carvedilol 12.5 MG TAB PO SCH ×2 (09:41→16:19)
[2022-11-21] MEDS: Aspirin 81 mg Enteric Coated Tablet PO SCH (09:41)
[2022-11-21] MEDS: Furosemide 40 MG TAB PO SCH ×2 (09:41→14:15)
[2022-11-21] MEDS: Lisinopril 5 MG TAB PO SCH (09:41)
[2022-11-21] MEDS: Ivabradine 5 MG TAB PO SCH (09:42)
[2022-11-21] MEDS: HumaLOG 300 UNITS/3 ML VIAL SC PRN (12:25)
[2022-11-21 14:51] VITALS: BP 144/89; TEMP 98.2
== END 2022-11-21 18:24 | disposition home or self-care (01) | DRG 291 ==
LOC: CSHERS 18:33 → CSHERHOLD 20:24 → CSHTELE 11-18 17:21
PROVIDERS: ADMIT Student in an Organized Health Care Education/Training Program; ATTEND Hospitalist
PROC: 0T9B70Z Drainage of Bladder with Drainage Device, Via Natural or Artificial Opening (ICD-10-PCS; principal; 2022-11-17)
DX: I13.0 Hypertensive heart and chronic kidney disease with heart failure and stage 1 through stage 4 chronic kidney disease, or unspecified chronic kidney disease (principal); I50.23 Acute on chronic systolic (congestive) heart failure; I24.8 Other forms of acute ischemic heart disease; E78.5 Hyperlipidemia, unspecified; I25.10 Atherosclerotic heart disease of native coronary artery without angina pectoris; Z95.5 Presence of coronary angioplasty implant and graft; F17.210 Nicotine dependence, cigarettes, uncomplicated; Z79.82 Long term (current) use of aspirin; Z79.84 Long term (current) use of oral hypoglycemic drugs; Z79.899 Other long term (current) drug therapy; N18.31 Chronic kidney disease, stage 3a; E11.22 Type 2 diabetes mellitus with diabetic chronic kidney disease
CPT/HCPCS: 36415; 36416; 51702; 71045; 80048; 80053; 82553; 83735; 83880; 84484; 85025; 93005; 93306; 94640; 94760; 96374; 97139; J0696; J1650; J1815; J1940; J3475; J3490; J7620

== ENCOUNTER 2022-12-01 13:04 | Emergency (ER) | payer SELFPAY ==
[2022-12-01] MEDS ORDERED: Acetaminophen 500 MG TAB ONE (14:52)
[2022-12-01] MEDS ORDERED: Lidocaine 4% Patch TD SCH (15:00)
== END 2022-12-01 15:57 | disposition home or self-care (01) ==
LOC: CSHERS 13:04
DX: J18.9 Pneumonia, unspecified organism (principal); E11.9 Type 2 diabetes mellitus without complications; I11.0 Hypertensive heart disease with heart failure; I50.9 Heart failure, unspecified; E78.5 Hyperlipidemia, unspecified; I25.10 Atherosclerotic heart disease of native coronary artery without angina pectoris; F17.210 Nicotine dependence, cigarettes, uncomplicated; Z79.899 Other long term (current) drug therapy; Z79.4 Long term (current) use of insulin; Z79.84 Long term (current) use of oral hypoglycemic drugs